=== PATIENT | female | born 1960 | race Caucasian/White ===

== ENCOUNTER 2022-02-16 10:07 | Emergency (ER) | payer MEDICAID ==
[~2022-02-16] VITALS: Ht 160 cm; Wt 54.0 kg
[2022-02-16 10:49] LABS: Basophils # (auto) 0 10 ^3/uL (0-0.2); Basophils % (auto) 0.5 % (0.0-2.0); Eosinophils # (auto) 0.2 10 ^3/uL (0-0.8); Eosinophils % (auto) 2.5 % (0.0-7.0); Hematocrit 49.1 % (36.0-46.0); Hemoglobin 15.9 g/dL (12.2-16.2); Lymphocytes % (auto) 21.4 % (10.0-50.0); Mean Corpuscular Hemoglobin 29.2 pg (28.0-32.0); Mean Corpuscular Hgb Conc. 32.4 g/dL (32.0-36.0); Mean Corpuscular Volume 90.1 fL (80.0-100.0); Monocytes # (auto) 0.7 10 ^3/uL (0-1.3); Monocytes % (auto) 7.5 % (0.0-12.0); Neutrophils # (auto) 6.5 10 ^3/uL (1.6-8.6); Neutrophils % (auto) 68.1 % (37.0-80.0); Red Blood Cells 5.46 10^6/uL (4.0-5.20); Red Cell Distribution Width 14.3 % (11.8-14.3); White Blood Cell 9.6 10^3/uL (4.4-10.8)
[2022-02-16] MEDS ORDERED: CLIN300C8 PO (10:51)
[2022-02-16] MEDS ORDERED: LISI20TA28 PO (10:51)
[2022-02-16 11:09] LABS: Albumin 3.7 g/dL (3.4-5.0); Calcium 9.5 mg/dL (8.5-10.1); Potassium 3.2 mmol/L (3.5-5.1)
[2022-02-16 11:12] LABS: BUN/Creatinine Ratio 14.3; Bilirubin, Total 0.6 mg/dL (0.2-1.0); Total Protein 8.3 g/dL (6.4-8.2)
[2022-02-16] MEDS ORDERED: POTASSIUM EFFERVESENT TAB 25 MEQ PO ONE (14:45)
[2022-02-16 15:15] VITALS: BP 190/107
== END 2022-02-16 15:24 | disposition home or self-care (01) ==
LOC: ER 10:07
DX: L03.116 Cellulitis of left lower limb (principal); I16.0 Hypertensive urgency; E87.6 Hypokalemia; Z79.2 Long term (current) use of antibiotics; Z79.899 Other long term (current) drug therapy; Z88.2 Allergy status to sulfonamides
CPT/HCPCS: 36415; 73620; 80053; 84484; 85025

== ENCOUNTER 2022-06-15 10:38 | Emergency (ER) | payer MEDICAID ==
[~2022-06-15] VITALS: Ht 160 cm; Wt 54.0 kg
[~2022-06-15 10:38] MED LIST: CLIN300C8 PO; LISI20TA28 PO
[2022-06-15] MEDS ORDERED: LOSA-69 PO (12:27)
[2022-06-15 13:47] VITALS: BP 183/113
== END 2022-06-15 13:50 | disposition home or self-care (01) ==
LOC: ER 10:38
DX: I10 Essential (primary) hypertension (principal); Z88.2 Allergy status to sulfonamides

== ENCOUNTER 2022-07-24 16:43 | Emergency (ER) | payer MEDICAID ==
[~2022-07-24] VITALS: Ht 160 cm; Wt 55.4 kg
[~2022-07-24 16:43] MED LIST changes: +LOSA-69 PO
[2022-07-24] MEDS ORDERED: GABA100C9 PO (20:45)
[2022-07-24] MEDS ORDERED: LOSA-69 PO (20:45)
[2022-07-24 20:54] VITALS: BP 124/87
== END 2022-07-24 21:19 | disposition home or self-care (01) ==
LOC: ER 16:46
DX: I10 Essential (primary) hypertension (principal); Z76.0 Encounter for issue of repeat prescription; Z88.2 Allergy status to sulfonamides